=== PATIENT | male | born 1945 | race Caucasian/White ===

== ENCOUNTER 2022-08-25 08:47 | Emergency (ER) | payer MEDICARE, OTHER, SELFPAY ==
[2022-08-25 08:51] VITALS: BP 139/78; PULSE 79; RESP 17; O2SAT 93; BMI 32.7
--- NOTE | 2022-08-25 08:58 | XRR_ITS ---
PROCEDURE INFORMATION: Exam: XR Right Ribs with PA Chest Exam date and time: 08/25/2022 9:20 AM Age: 77 years old Clinical indication: Injury or trauma; Fall; Rib area; Blunt trauma (contusions or hematomas) TECHNIQUE: Imaging protocol: Radiologic exam of the right ribs with PA chest. Views: 3 views Total images: 212 COMPARISON: No relevant prior studies available. FINDINGS: Lungs: Unremarkable. No consolidation. Pleural spaces: There is blunting of both costophrenic angles, suggestive of small pleural effusions or chronic pleural thickening. Heart/Mediastinum: Unremarkable. No cardiomegaly. Bones/joints: Mild AC joint space narrowing and minimal osteophyte formation. Anterior right 9th rib fracture and questionable anterior right 10th rib fracture. XR/XR ribs RT mn 3V w [id number] IMPRESSION: 1. There is blunting of both costophrenic angles, suggestive of small pleural effusions or chronic pleural thickening. 2. Anterior right 9th rib fracture and questionable anterior right 10th rib fracture.
--- NOTE | 2022-08-25 08:59 | W.ED.FALL ---
HPI - Fall General: Chief Complaint: Fall Stated Complaint: fall, rib pain Time Seen by Provider: 08/25/22 08:48 Source: patient Mode of arrival: ambulatory Limitations: no limitations History of Present Illness: 77-year-old male states that he had a fall yesterday fell onto his right side hit his ribs states is a ground-level fall states he had right-sided rib pain since then he rates his pain a 6 out of 10 he denies any shortness of breath denies any other injuries denies hitting his head Associated symptoms-after fall: Reports chest pain; Denies abdominal pain, headache(s) or neck pain Review of Systems Const: Denies: fever(s), chills, body aches or change in appetite Eyes: Denies: blurry vision or eye discomfort ENMT: Denies: throat pain or dental pain Card: Reports: chest pain Resp: Denies: dyspnea GI: Denies: abdominal pain, nausea, vomiting or diarrhea Musc: Denies: neck pain or back pain Skin/Breast: Denies: rash Neuro: Denies: headache(s) Physical Exam Const: COMMON NORMALS: no acute distress, patient oriented x3 and healthy appearing HENMT: COMMON NORMALS: normocephalic and atraumatic HEAD & SCALP: normocephalic and atraumatic Eye: COMMON NORMALS: conjunctivae normal CONJUNCTIVA: Yes conjunctivae normal Neck/C-Spine: COMMON NORMALS: full ROM and supple Chest: COMMONS NORMALS: normal inspection of the chest OTHER: tender over right chest wall Resp: COMMON NORMALS: normal respiratory effort, No retractions, No use of accessory muscles and clear to auscultation bilaterally AUSCULTATION: clear to auscultation bilaterally Cardio: COMMON NORMALS: regular rate, regular rhythm and No murmurs present (Cardio) RATE: regular rate RHYTHM: regular rhythm GI: INSPECTION: Yes normal to inspection Extremity: COMMON NORMALS: normal to inspection and full ROM Neuro: COMMON NORMALS: patient oriented x3, moves all extremities and no focal motor deficits Psych: COMMON NORMALS: mental status grossly normal, Normal thought process present and cooperative THOUGHT PROCESS: Normal thought process present Skin: COMMON NORMALS: no rashes or lesions noted and no wounds GENERAL SKIN EXAM: no rashes or lesions noted Course Vital Signs: Vital signs: Vital Signs Pulse Rate 67 08/25/22 09:37 Respiratory Rate 20 H 08/25/22 09:37 Blood Pressure 130/68 08/25/22 09:37 Pulse Oximetry 92 08/25/22 09:37 Oxygen Delivery Me thod Room Air 08/25/22 09:37 MDM - Fall Medical Decision Making Patient presents here with rib fractures from a fall he has no signs of intra-abdominal injury no signs of pneumonia or pneumothorax did send him home with incentive spirometry along with pain meds he is to follow-up with PCP and return if worsening. Lab Data Radiology Impressions Ribs X-Ray 08/25/22 08:58 IMPRESSION: 1. There is blunting of both costophrenic angles, suggestive of small pleural effusions or chronic pleural thickening. 2. Anterior right 9th rib fracture and questionable anterior right 10th rib fracture. Discharge Plan Discharge Patient Disposition: Home Clinical Impression: Right rib fracture Qualifiers: Encounter type: initial encounter Rib fracture type: multiple ribs Fracture type: closed Qualified Code(s): S22.41XA - Multiple fractures of ribs, right side, initial encounter for closed fracture Condition: Stable Prescriptions: New hydrocodone-acetaminophen 5-325 mg tablet 1 tab PO Q6H PRN (Reason: pain) Qty: 14 0RF No Action oxybutynin chloride 10 mg tablet extended release 24hr 10 mg PO DAILY amiodarone 200 mg tablet 200 mg PO DAILY tamsulosin 0.4 mg capsule 0.4 mg PO DAILY simvastatin 20 mg tablet 20 mg PO QPM finasteride 5 mg tablet 5 mg PO DAILY amlodipine-benazepril 5-40 mg capsule 1 cap PO DAILY Vitamin D3 25 mcg (1,000 unit) Tablet 25 mcg PO DAILY Eliquis 5 mg Tablet 5 mg PO BID Discharge Orders: Discharge ED (Routine); Ordered 08/25/22 Ordered By: Sybil Melgoza Discharge Diet: Advance as tolerated Discharge Activity: Resume usual activity Patient Instructions: Rib Fracture (ED), Opioid Safety Coding Level of Care Code ED Front Office Administrator for Ayad García
[2022-08-25] MEDS: naproxen 500 mg Tablet PO (09:03)
[2022-08-25 09:37] VITALS: BP 130/68; PULSE 67; RESP 20; O2SAT 92
[2022-08-25 10:13] VITALS: BP 125/78; PULSE 66; O2SAT 93
[2022-08-25 10:14] VITALS: PULSE 56; RESP 18; O2SAT 95
== END 2022-08-25 10:14 | disposition home or self-care (01) ==
PROVIDERS: Emergency Provider Emergency Medicine
DX: S22.41XA Multiple fractures of ribs, right side, initial encounter for closed fracture (principal); W19.XXXA Unspecified fall, initial encounter
CPT/HCPCS: 71101; 99283